=== PATIENT | female | born 1960 | race Caucasian/White ===

== ENCOUNTER 2020-02-21 11:53 | Emergency (ER) | payer BC, OTHER ==
[2020-02-21 12:31] LABS: BASOPHILS % (AUTO) 0.4 % (0.0-5.0); EOSINOPHILS % (AUTO) 1.2 % (0.0-8.0); HEMATOCRIT 41.6 % (36-48); LYMPHOCYTES % (AUTO) 25.6 % (21.0-51.0); MEAN CORPUSCULAR HEMOGLOBIN 31.3 pg (27.0-33.0); MEAN CORPUSCULAR HGB CONC 33.4 g/dL (32.0-36.0); MEAN CORPUSCULAR VOLUME 93.7 fL (79-99); MONOCYTES % (AUTO) 7.4 % (3.0-13.0); NEUTROPHILS % (AUTO) 65.1 % (40.0-77.0); PLATELET COUNT (AUTO) 206 K/uL (130-400); RED BLOOD CELL COUNT(AUTO) 4.44 MIL/uL (4.00-5.50); RED CELL DISTRIBUTION WIDTH 12.7 % (11.0-15.5)
[2020-02-21] MEDS ORDERED: ONDANSETRON HCL 4 MG/2 ML VIAL ONE (12:34)
[2020-02-21] MEDS ORDERED: KETOROLAC TROMETHAMINE 30MG/ML ONE (12:34)
[2020-02-21 12:48] LABS: CREATININE 0.7 mg/dL (0.5-1.5); POTASSIUM 3.5 mmol/L (3.5-5.1)
[2020-02-21 12:52] LABS: ALBUMIN 3.6 g/dL (3.5-5.0); BILIRUBIN,TOTAL 0.4 mg/dL (0.2-1.0); TOTAL PROTEIN, SERUM 7.5 g/dL (6.0-8.3)
== END 2020-02-21 16:47 | disposition home or self-care (01) ==
LOC: EDH 11:53
DX: R51 Headache (principal); G89.29 Other chronic pain; M54.2 Cervicalgia; E11.9 Type 2 diabetes mellitus without complications; I10 Essential (primary) hypertension; M19.90 Unspecified osteoarthritis, unspecified site; Z72.0 Tobacco use; Z88.6 Allergy status to analgesic agent
CPT/HCPCS: 36415; 70450; 80053; 85025; 93005; 96374; 96375; 99285; J1885; J2405

== ENCOUNTER → 2023-10-12 | Outpatient (CLI) | payer BC | LOC: RAH 13:52 | PROVIDERS: ATTEND Family Medicine | DX: M75.101 Unspecified rotator cuff tear or rupture of right shoulder, not specified as traumatic (principal); M19.011 Primary osteoarthritis, right shoulder | CPT/HCPCS: 73221 ==

== ENCOUNTER 2024-02-28 09:30 | Observation (INO) | payer BC ==
[~2024-02-28] VITALS: Ht 175.3 cm; Wt 134.3 kg
[2024-02-28] MEDS: MORPHINE 4 MG SYG IVP ONE ×3 (10:20→14:06)
[2024-02-28] MEDS: 0.9%NACL 1000ML 1,000 ML IV ONE ×2 (10:21→12:49)
[2024-02-28] MEDS: ONDANSETRON 4MG INJ IVP ONE (10:21)
[2024-02-28 10:33] LABS: HEMATOCRIT 38.5 % (36-48); MEAN CORPUSCULAR HEMOGLOBIN 28.7 pg (27.0-33.0); MEAN CORPUSCULAR HGB CONC 31.9 g/dL (32.0-36.0); PLATELET COUNT (AUTO) 232 K/uL (130-400); RED BLOOD CELL COUNT(AUTO) 4.28 MIL/uL (4.00-5.50); RED CELL DISTRIBUTION WIDTH 13.3 % (11.0-15.5)
[2024-02-28] MEDS: KETOROLAC 30MG VIAL (30MG/ML) IVP ONE (11:04)
[2024-02-28 11:10] LABS: CREATININE 1.4 mg/dL (0.5-1.0); POTASSIUM 3.6 mmol/L (3.5-5.1)
[2024-02-28 11:15] LABS: ALBUMIN 3.5 g/dL (3.5-5.0); BILIRUBIN,TOTAL 0.4 mg/dL (0.2-1.0); TOTAL PROTEIN, SERUM 7.6 g/dL (6.0-8.3)
[2024-02-28 11:40] LABS: LYMPHOCYTES % (MANUAL) 26 % (22-44); MAN.DIFF COMMENT-IMPRESSION MANUAL DIFFERENTIAL; MONOCYTES % (MANUAL) 7 % (2-9); PLATELET MORPHOLOGY COMMENT ADEQUATE; SEGMENTED NEUTROPHILS % 67 % (40-70); TOTAL CELLS COUNTED 100
[2024-02-28 12:02] LABS: ADD UA MICROSCOPIC YES; APPEARANCE,URINE CLEAR (CLEAR); BILIRUBIN,URINE NEGATIVE (NEGATIVE); COLOR,URINE YELLOW (YELLOW); GLUCOSE, URINE (UA) >=1000 mg/dL (NEGATIVE); KETONES,URINE 5 mg/dL (NEGATIVE); LEUKOCYTE ESTERASE ,URINE 75 Leu/uL (NEGATIVE); NITRATE,URINE NEGATIVE (NEGATIVE); OCCULT BLOOD,URINE NEGATIVE (NEGATIVE); PROTEIN,URINE 10 mg/dL (NEGATIVE); UROBILINOGEN,URINE 0.2 mg/dL (0.2-1.0)
[2024-02-28 12:03] LABS: BACTERIA,URINE RARE /HPF (None Seen); MUCUS,URINE RARE LPF (None Seen); SQUAMOUS EPITHELIAL CELL,UR FEW /HPF (0-2); YEAST,URINE BUDDING FEW /HPF (None Seen)
[2024-02-28] MEDS: INSULIN HUMULIN R 100 UNIT/ML 3ML IV ONE (12:51)
[2024-02-28] MEDS ORDERED: ONDANSETRON 4MG INJ IV PRN (14:30)
[2024-02-28] MEDS ORDERED: LOSA25TA41 PO (14:49)
[2024-02-28] MEDS ORDERED: DULO60CA64 PO (14:49)
[2024-02-28] MEDS ORDERED: CHLO25TA3 PO (14:49)
[2024-02-28] MEDS ORDERED: GLIP10TA19 PO (14:49)
[2024-02-28] MEDS ORDERED: GABA-529 PO (14:49)
[2024-02-28] MEDS ORDERED: LEVO175C2 PO (14:49)
[2024-02-28] MEDS ORDERED: DAPA10TA PO (14:49)
[2024-02-28] MEDS ORDERED: PRAV40TA3 PO (14:49)
[2024-02-28] MEDS ORDERED: SULF500T49 PO (14:49)
[2024-02-28] MEDS ORDERED: INSU100I56 SQ (14:49)
[2024-02-28] MEDS ORDERED: METF-444 PO (14:49)
[2024-02-28] MEDS ORDERED: FENO48TA10 PO (14:49)
[2024-02-28 15:23] LABS: HEMOGLOBIN A1C 6.5 % (4.0-6.0)
[2024-02-28] MEDS: 0.9%NACL 1000ML 1,000 ML IV SCH (16:01)
[2024-02-28] MEDS: MORPHINE 2 MG SYG IVP PRN (18:16)
[2024-02-28] MEDS: INSULIN HUMULIN R 100 UNIT/ML 3ML SQ SCH (21:00)
[2024-02-28] MEDS: ATORVASTATIN 10 MG TABLET PO SCH (22:34)
[2024-02-28] MEDS: FAMOTIDINE 20MG VIAL IV SCH (22:34)
[2024-02-28 22:50] VITALS: O2SAT 98
[2024-02-28] MEDS ORDERED: cefTRIAXone 1G VIAL IVPB SCH (23:30)
[2024-02-28 23:32] VITALS: PULSE 89; RESP 18
[2024-02-29] VITALS (8 sets, daily range): BP systolic 102–134; BP diastolic 43–66; PULSE 60–79; RESP 18–20; O2SAT 94–96
[2024-02-29] MEDS: LEVOFLOXACIN 500 MG/D5W 100 ML 100 ML IV SCH (00:51)
[2024-02-29] MEDS: LEVOTHYROXINE 88 MCG TABLET PO SCH (05:36)
[2024-02-29 05:59] LABS: BASOPHILS # (AUTO) 0.03 K/uL (0.00-0.20); BASOPHILS % (AUTO) 0.4 % (0.0-5.0); EOSINOPHILS # (AUTO) 0.02 K/uL (0.00-0.70); EOSINOPHILS % (AUTO) 0.3 % (0.0-8.0); HEMATOCRIT 36.1 % (36-48); IMMATURE GRANULOCYTE ABSOLUTE 0.04 K/uL (0-1); LYMPHOCYTES # (AUTO) 1.4 K/uL (1.0-4.8); LYMPHOCYTES % (AUTO) 21.4 % (21.0-51.0); MEAN CORPUSCULAR HEMOGLOBIN 29.8 pg (27.0-33.0); MEAN CORPUSCULAR HGB CONC 31.3 g/dL (32.0-36.0); MEAN CORPUSCULAR VOLUME 95.3 fL (79-99); MONOCYTES # (AUTO) 0.5 K/uL (0.1-1.0); MONOCYTES % (AUTO) 8.1 % (3.0-13.0); NEUTROPHILS # (AUTO) 4.6 K/uL (1.8-7.7); NEUTROPHILS % (AUTO) 69.2 % (40.0-77.0); PLATELET COUNT (AUTO) 203 K/uL (130-400); RED BLOOD CELL COUNT(AUTO) 3.79 MIL/uL (4.00-5.50); RED CELL DISTRIBUTION WIDTH 13.3 % (11.0-15.5); WHITE BLOOD COUNT (AUTO) 6.7 K/uL (4.8-10.8)
[2024-02-29 06:26] LABS: ALBUMIN 3.1 g/dL (3.5-5.0); BILIRUBIN,TOTAL 0.4 mg/dL (0.2-1.0); CREATININE 1.2 mg/dL (0.5-1.0); POTASSIUM 3.8 mmol/L (3.5-5.1); TOTAL PROTEIN, SERUM 6.7 g/dL (6.0-8.3)
[2024-02-29 07:10] LABS: ERYTHROCYTE SEDIMENTATION RATE 52 MM/HR (0-30)
[2024-02-29] MEDS: Chlorthalidone 25 MG PO SCH (08:59)
[2024-02-29] MEDS: LOSARTAN 25 MG TABLET PO SCH (09:01)
[2024-02-29] MEDS: ENOXAPARIN SODIUM 40 MG/0.4 ML SYRINGE SQ SCH (09:01)
[2024-02-29] MEDS: FENOFIBRATE NANOCRYSTALLIZED 48 MG TAB PO SCH (09:02)
[2024-02-29] MEDS ORDERED: acetaMINOPHEN WITH coDEINE 1 TAB TAB PO PRN (17:30)
[2024-02-29] MEDS: acetaMINOPHEN WITH coDEINE 1 TAB TAB PO PRN (18:58)
[2024-02-29] MEDS: LACTULOSE 20 GM/30 ML UDCUP PO PRN (18:58)
[2024-02-29] MEDS: LACTULOSE 20 GM/30 ML UDCUP PO SCH (20:56)
[2024-03-01 04:00] VITALS: BP 136/67; PULSE 70; RESP 20
[2024-03-01 04:45] LABS: BASOPHILS # (AUTO) 0.02 K/uL (0.00-0.20); BASOPHILS % (AUTO) 0.3 % (0.0-5.0); EOSINOPHILS # (AUTO) 0.02 K/uL (0.00-0.70); EOSINOPHILS % (AUTO) 0.3 % (0.0-8.0); HEMATOCRIT 34.7 % (36-48); IMMATURE GRANULOCYTE ABSOLUTE 0.01 K/uL (0-1); LYMPHOCYTES # (AUTO) 1.8 K/uL (1.0-4.8); LYMPHOCYTES % (AUTO) 31.1 % (21.0-51.0); MEAN CORPUSCULAR HEMOGLOBIN 29.1 pg (27.0-33.0); MEAN CORPUSCULAR HGB CONC 32.3 g/dL (32.0-36.0); MEAN CORPUSCULAR VOLUME 90.1 fL (79-99); MONOCYTES # (AUTO) 0.5 K/uL (0.1-1.0); MONOCYTES % (AUTO) 9.2 % (3.0-13.0); NEUTROPHILS # (AUTO) 3.5 K/uL (1.8-7.7); NEUTROPHILS % (AUTO) 58.9 % (40.0-77.0); PLATELET COUNT (AUTO) 213 K/uL (130-400); RED BLOOD CELL COUNT(AUTO) 3.85 MIL/uL (4.00-5.50); RED CELL DISTRIBUTION WIDTH 13.2 % (11.0-15.5); WHITE BLOOD COUNT (AUTO) 5.9 K/uL (4.8-10.8)
[2024-03-01 05:11] LABS: ALBUMIN 3.1 g/dL (3.5-5.0); BILIRUBIN,TOTAL 0.3 mg/dL (0.2-1.0); CREATININE 1.2 mg/dL (0.5-1.0); POTASSIUM 3.6 mmol/L (3.5-5.1); TOTAL PROTEIN, SERUM 6.8 g/dL (6.0-8.3)
[2024-03-01 07:30] VITALS: O2SAT 100
[2024-03-01 08:00] VITALS: BP 125/69; PULSE 85; RESP 18
[2024-03-01 12:00] VITALS: BP 145/69; PULSE 78; RESP 18
[2024-03-01 16:00] VITALS: BP 130/65; PULSE 75; RESP 18
== END 2024-03-01 18:30 | disposition home or self-care (01) ==
LOC: EDH 09:30 → INTOOBSV 14:17 → EDHIP 14:17 → 3AH 22:49
PROVIDERS: ADMIT Internal Medicine; ATTEND Internal Medicine
DX: N39.0 Urinary tract infection, site not specified (principal); N28.9 Disorder of kidney and ureter, unspecified; E11.65 Type 2 diabetes mellitus with hyperglycemia; I10 Essential (primary) hypertension; E66.01 Morbid (severe) obesity due to excess calories; R74.8 Abnormal levels of other serum enzymes; R10.12 Left upper quadrant pain; E78.00 Pure hypercholesterolemia, unspecified; E03.9 Hypothyroidism, unspecified; Z88.6 Allergy status to analgesic agent; Z88.5 Allergy status to narcotic agent; Z79.84 Long term (current) use of oral hypoglycemic drugs; Z79.4 Long term (current) use of insulin; Z87.442 Personal history of urinary calculi; Z68.41 Body mass index [BMI] 40.0-44.9, adult; Z79.899 Other long term (current) drug therapy
CPT/HCPCS: 96376 ×2; 96361 ×3; 96375 ×2; 99285; 83036; 80053 ×3; 83690 ×2; 85025 ×3; 87086; 82948 ×9; 82010; 81001; 36415 ×3; 74176; 96372 ×2; 96365; 85651; 71045; 76700; 96366 ×2; 97161; 97116; J3490 ×2; J2270 ×4; J7030 ×2; J2405; J1885; J1815; G0378 ×18; J1956 ×2; J1650 ×2; 96374; G8980-CH; G8983-CH